=== PATIENT | female | born 1960 | race Caucasian/White ===

== ENCOUNTER → 2017-03-18 | Outpatient (CLI) | payer BC ==
[~2017-03-18] MED LIST: AMLO2.5T PO; ASCA500 PO; ASPEC325 PO; CALC500C70 PO; GLC/500 PO; HYDR-5688 PO; INSDGI SC; INUL1CHW2 PO; LSN5 PO; PRLSR20 PO; SIMV20TA2 PO; ULT50X PO
[2017-03-18 18:34] LABS: SYNOVIAL FLUID APPEARANCE HAZY; SYNOVIAL FLUID COLOR YELLOW; SYNOVIAL FLUID MONONUC RELAT 44.2 %; SYNOVIAL FLUID POLYNUC RELAT 55.8 %
== END | disposition home or self-care (01) ==
LOC: C.LAB 16:05
PROVIDERS: ATTEND Orthopaedic Surgery
DX: M25.461 Effusion, right knee (principal)